=== PATIENT | male | born 2005 | race Caucasian/White ===

== ENCOUNTER 2025-02-13 01:58 | Emergency (ER) | payer MEDICAID ==
[~2025-02-13] VITALS: Ht 180.3 cm; Wt 64.9 kg
[2025-02-13] MEDS ORDERED: IBUPROFEN 400 MG TABLET ONE (02:17)
[2025-02-13] MEDS: IBUPROFEN 400 MG TABLET PO ONE (02:19)
[2025-02-13] MEDS ORDERED: HYDR-3972 PO (03:18)
[2025-02-13 03:37] VITALS: BP 121/88; TEMP 97.8; O2SAT 99
== END 2025-02-13 03:38 | disposition home or self-care (01) ==
LOC: ER 02:03
DX: S72.434A Nondisplaced fracture of medial condyle of right femur, initial encounter for closed fracture (principal); J45.909 Unspecified asthma, uncomplicated; V29.99XA Rider (driver) (passenger) of other motorcycle injured in unspecified traffic accident, initial encounter; Y93.89 Activity, other specified; Y92.89 Other specified places as the place of occurrence of the external cause; Y99.8 Other external cause status
CPT/HCPCS: 73700-TC